=== PATIENT | male | born 1975 | race Two or more races ===

== ENCOUNTER 2017-09-15 23:32 | Emergency (ER) | payer SELFPAY ==
[~2017-09-15] VITALS: Ht 175.3 cm; Wt 104.3 kg
[2017-09-15 23:45] VITALS: BP 182/109
[2017-09-16] MEDS ORDERED: HYDROcodone-ACET 10/325MG TAB PO ONE (02:45)
== END 2017-09-16 03:32 | disposition home or self-care (01) ==
LOC: ER 23:36
DX: M54.9 Dorsalgia, unspecified (principal); M54.2 Cervicalgia; M62.838 Other muscle spasm
CPT/HCPCS: 72125; 72131; 73020